=== PATIENT | male | born 1990 | race Caucasian/White ===

== ENCOUNTER 2019-03-05 07:13 | Emergency (ER) | payer SELFPAY ==
--- NOTE | 2019-03-05 07:25 | NUR ---
no answer in er lobby
== END 2019-03-05 07:25 | disposition left against medical advice (07) ==
LOC: MED 07:13
DX: F14.90 Cocaine use, unspecified, uncomplicated (principal); Z53.21 Procedure and treatment not carried out due to patient leaving prior to being seen by health care provider

== ENCOUNTER 2019-05-27 21:38 | Emergency (ER) | payer OTHER ==
[~2019-05-27] VITALS: Ht 180.3 cm; Wt 88.6 kg
[2019-05-27 21:40] VITALS: BP 140/77
--- NOTE | 2019-05-27 21:40 | NUR ---
TO BED # 06 AMBULATORY
--- NOTE | 2019-05-27 21:55 | NUR ---
29 YO MALE COMES TO ED FOR C/O PALPITATIONS. PT STATES HE WENT TO GYM @ 1400 AND TOOK PRE WORKOUT, PT [place] AND HAS STATED, " I FELT DEHYDRATED THE WHOLE DAY." PT STATES 5/10 ACHINESS INTERMITTENT CP. DENIES SOB. PT STATES HE FEELS DIZZY @ TIMES. PERIPHERAL PULSES INTACT. SKIN WARM DRY INTACT. DENIES N/V.D. GURNEY LOCKED IN LOWEST POSITION. DENIES PMH DENIES ALLERGIES
--- NOTE | 2019-05-27 21:59 | NUR ---
Dr. Cash examining patient.
[2019-05-27] MEDS ORDERED: NACL 0.9% 1,000 ML IV ONE (22:00)
[2019-05-27] MEDS ORDERED: LORazepam 2 MG/ML VIAL IVP ONE (22:00)
[2019-05-27 22:17] LABS: BASOPHILS # (AUTO) 0.1 K/uL (0.00-0.22); BASOPHILS % (AUTO) 0.5 % (0.0-2.0); EOSINOPHILS # (AUTO) 0.1 K/uL (0-0.4); HEMOGLOBIN 14.4 g/dL (12.0-18.0); LYMPHOCYTES # (AUTO) 5.2 K/uL (2.0-11.5); LYMPHOCYTES % (AUTO) 43.8 % (20.5-51.1); MEAN CORPUSCULAR HEMOGLOBIN 30 pg (27-31); MEAN CORPUSCULAR HGB CONC 34 g/dL (33-37); MEAN CORPUSCULAR VOLUME 90.2 fL (80-94); MONOCYTES # (AUTO) 0.8 K/uL (0.8-1.0); NEUTROPHILS # (AUTO) 5.6 K/uL (1.8-7.7); NEUTROPHILS % (AUTO) 47.7 % (42.2-75.2); PLATELET COUNT (AUTO) 199 K/uL (140-450); RED BLOOD CELL COUNT(AUTO) 4.76 MIL/uL (4.20-6.10); WHITE BLOOD COUNT (AUTO) 11.8 K/uL (4.8-10.8)
--- NOTE | 2019-05-27 22:19 | NUR ---
X-Ray at bedside.
[2019-05-27 22:37] LABS: ALBUMIN 4.1 g/dL (3.4-5.0); ANION GAP 14.7 (8-16); CARBON DIOXIDE 26.9 mmol/L (21-32); CREATININE 1.1 mg/dL (0.7-1.3); POTASSIUM 3.6 mmol/L (3.5-5.1); TOTAL BILIRUBIN 0.3 mg/dL (0.0-1.0)
[2019-05-27 23:34] VITALS: BP 111/83
--- NOTE | 2019-05-27 23:34 | NUR ---
DISCHARGE PAPERS GIVEN TO PT. PT STATES FEELING BETTER. NO CP. 0/10 PAIN. NO SOB/DYSPNEA. NO N/V. INSTRUCTED TO F/U WITH PCP AND WHEN TO RETURN TO ER. PT VERBALLIZED UNDERSTANDING OF DC INSTRUCTIONS. ALL QUESTIONS ANSWERED.
== END 2019-05-27 23:34 | disposition home or self-care (01) ==
LOC: MED 21:38
DX: R07.89 Other chest pain (principal); R00.0 Tachycardia, unspecified; R42 Dizziness and giddiness; R06.02 Shortness of breath
CPT/HCPCS: 36415; 71045; 80053; 84484; 85025; 93005; 96361; 96374; 99284; J2060; J7030; Q0092